=== PATIENT | male | born 1950 | race Caucasian/White ===

== ENCOUNTER 2022-06-27 08:32 | Day surgery (SDC) | payer MEDICARE, BC ==
[2022-06-24 10:36] LABS: BASOPHILS # (AUTO) 0.1 X10'3 (0-0.2); BASOPHILS % (AUTO) 0.7 % (0-1); EOSINOPHILS # (AUTO) 0.3 X10'3 (0-0.9); EOSINOPHILS % (AUTO) 3.9 % (0-6); LYMPHOCYTES # (AUTO) 2.2 X10'3 (1.1-4.8); LYMPHOCYTES % (AUTO) 31.4 % (21-51); MEAN CORPUSCULAR HGB CONC 33.1 g/dL (33.0-36.5); MEAN CORPUSCULAR VOLUME 87.4 FL (78-98); MEAN PLATELET VOLUME 7.6 FL (7.4-10.4); MONOCYTES # (AUTO) 0.5 X10'3 (0-0.9); MONOCYTES % (AUTO) 7.8 % (2-12); NEUTROPHILS # (AUTO) 3.9 X10'3 (1.8-7.7); NEUTROPHILS % (AUTO) 56.2 % (42-75); PRE OP HEMATOCRIT 43.9 % (42.0-52.0); PRE OP HEMOGLOBIN 14.5 g/dL (14.0-17.9); PRE OP PLATELET COUNT 383 X10'3 (140-440); RED BLOOD COUNT 5.02 X10'6 (4.70-6.10); RED CELL DISTRIBUTION WIDTH 13.8 % (11.5-14.5)
[2022-06-24 10:51] LABS: ALBUMIN/GLOBULIN RATIO 1.3 (1.1-1.5); ALKALINE PHOSPHATASE 103 IU/L (46-116); BLOOD UREA NITROGEN 25 MG/DL (7-18); BUN/CREATININE RATIO 22.9 (5.4-32.0); CHLORIDE 104 MMOL/L (99-107); CREATININE 1.09 MG/DL (0.60-1.10); PRE OP ALT 24 U/L (30-65); PRE OP ANION GAP 7 (8-16); PRE OP AST 21 U/L (10-37); PRE OP BILIRUB, TOTAL 0.7 MG/DL (0.0-1.0); PRE OP GLUCOSE 131 MG/DL (70-104); PRE OP POTASSIUM 4.3 MMOL/L (3.4-5.1); PRE OP SODIUM 142 MMOL/L (135-145); TOTAL CARBON DIOXIDE 31.5 MMOL/L (24-32); eGFR 66 ML/MIN
[~2022-06-27] VITALS: Ht 170.2 cm; Wt 90.0 kg
[2022-06-27] VITALS (11 sets, daily range): BP systolic 114–136; BP diastolic 70–88
[~2022-06-27 08:32] MED LIST: GABA300C PO; HYDR-3972 PO; LISI20TA28 PO; ceFAZolin inj. 2,000 MG in dextrose 5%-water 100 ML IV ONE; famotidine 20mg tablet PO ONE; ringers solution, lacted 1,000 ML IV SCH
[2022-06-27] MEDS ORDERED: BUPIVAcaine 0.5% inj/PF 30 ML ONE (09:49)
[2022-06-27] MEDS ORDERED: fentaNYL/PF 50MCG/1 ML 2ML syringe ONE (10:04)
[2022-06-27] MEDS ORDERED: hydrALAZINE 20mg/ml inj. IV PRN (10:05)
[2022-06-27] MEDS ORDERED: morphine 2 MG/ML inj. syringe IV PRN (10:05)
[2022-06-27] MEDS ORDERED: MIDAZolam 1 MG/ML 5ML VIAL ONE (10:05)
[2022-06-27] MEDS ORDERED: morphine 4 MG/ML inj SYRINge IV PRN (10:05)
[2022-06-27] MEDS ORDERED: ondansetron/PF 4mg/2ml inj IV PRN (10:05)
[2022-06-27] MEDS ORDERED: ringers solution, lacted 1,000 ML IV SCH (10:05)
[2022-06-27] MEDS ORDERED: LIDOcaine 2% (20mg/ml) 5ml vial ONE (10:17)
[2022-06-27] MEDS ORDERED: LIDOcaine 0.5% (5mg/ml) 50ml vial ONE (10:17)
[2022-06-27] MEDS ORDERED: ketorolac trometh. 30mg/ml inj. ONE (10:17)
[2022-06-27] MEDS ORDERED: BUPIVAcaine 0.5% inj/PF 30 ml vial IJ ONE (10:22)
--- NOTE | 2022-06-27 12:22 | NUR ---
PT DISCHARGED FROM PACU PER CRITERIA. PT PROVIDED DC PAPER WORK, RN EXPLAINED THE DC PAPERWORK IN DETAIL, QUESTIONS ADDRESSED. DC INTO CARE OF SIGNIFICANT OTHER, LEFT HOSPITAL BY POV WITHOUT INCIDENT. VSS, PT DENIES PAIN. Addendum: 06/27/22 at 1253 by Andrés Colon RN Amended: Links added.
== END 2022-06-27 12:22 | disposition home or self-care (01) ==
LOC: PAS 08:32
PROVIDERS: ATTEND Orthopaedic Surgery Hand Surgery
DX: G56.01 Carpal tunnel syndrome, right upper limb (principal); G56.21 Lesion of ulnar nerve, right upper limb; I10 Essential (primary) hypertension; M17.0 Bilateral primary osteoarthritis of knee; F41.9 Anxiety disorder, unspecified; M47.816 Spondylosis without myelopathy or radiculopathy, lumbar region; Z98.890 Other specified postprocedural states; Z95.5 Presence of coronary angioplasty implant and graft; Z79.899 Other long term (current) drug therapy
CPT/HCPCS: 36415; 64718; 64721; 80053; 82948; 85025; J0690; J1885; J2250; J3010; J3490; J7060; J7120; S0020; Z7512; A4215; A4615; A6449